=== PATIENT | male | born 1975 | race Caucasian/White ===

== ENCOUNTER 2017-05-20 12:30 | Emergency (ER) | payer OTHER ==
[~2017-05-20] VITALS: Ht 185.4 cm; Wt 110.0 kg
[2017-05-20] MEDS ORDERED: LOSA50TA20 PO (12:40)
[2017-05-20] MEDS ORDERED: DIPHENHYDRAMINE 25MG CAPSULE PO ONE (13:00)
[2017-05-20 13:04] VITALS: BP 155/101
== END 2017-05-20 14:00 | disposition home or self-care (01) ==
LOC: ER 13:32
DX: L74.0 Miliaria rubra (principal); R61 Generalized hyperhidrosis; I10 Essential (primary) hypertension
CPT/HCPCS: 99283; Z7610; Q0163